=== PATIENT | female | born 1965 | race Caucasian/White ===

== ENCOUNTER 2023-02-14 02:05 | Outpatient (CLI) | payer OTHER, SELFPAY ==
--- NOTE | 2023-02-14 13:00 | DI.CTLCSR_ITS ---
Exam(s) CT CHEST LUNG CANCER SCREEN EXAM: CT CHEST LUNG CANCER SCREEN CLINICAL HISTORY: NICOTINE DEPENDENCE, F17.210 TECHNIQUE: Imaging Protocol: Axial computed tomography images with coronal and sagittal reformatted images were created and reviewed COMPARISON: CT CT CHEST W/ CNTRST from 06/02/2022 FINDINGS: Tracheobronchial tree: Patent where visualized. Pulmonary parenchyma: No consolidation or dominant measurable mass. No architectural distortion. Ther e are calcified granuloma in the lungs. Lung Nodules: None. Mediastinum and Elif: There are stable enlarged mediastinal lymph nodes. The esophagus is unremarkab le. Thyroid gland: Unremarkable. Lymph nodes: No significant axillary adenopathy is present. Pleura: No effusion or pneumothorax. Heart: The heart is not dilated. Moderate coronary artery calcification is present. No pericardial e ffusion. Aorta: Thoracic aorta non-dilated.Mild atherosclerosis. Upper abdomen: Unremarkable. Soft Tissues: Unremarkable. Bones: Within normal limits. IMPRESSION: No suspicious pulmonary nodules. Lung RADS Cat 1 - Negative: No nodules and definitely benign nodules Lung-RADS 1.0 CATEGORIES: Category 0 - Prior chest CT exam(s) being located for comparison. Category 1 - Annual screening in 12 months. No nodules or definitely benign nodules. Category 2 - Annual screening in 12 months. Benign appearance. Nodules with low likelihood of becomin g active cancer. Category 3 - 6-month follow-up. Probably benign. Short-term follow-up suggested. Nodules with low lik elihood of becoming active cancer. Category 4A - 3-month follow-up and CT/PET if >8 mm in size. Suspicious finding. Findings which requi re additional testing. Category 4B - Findings which require additional testing and tissue sampling. Suspicious finding. Category 4X - Category 3 or 4 nodules with additional features or imaging findings that increases the suspicion of malignancy. Modifier S- Potentially clinically significant finding. (Non lung cancer) RADIATION DOSE DELIVERED: 73.3mGy.cm Total DLP 73.3mGy.cmTotal DLP DATA REPOSITORY: All CT scans at this facility are submitted to the National Radiology Data Registry (NRDR) Dose Index Registry (DIR) with the [employer] (ACR). RADIATION OPTIMIZATION: All CT scans at this facility use at least one of these dose optimization te chniques: automated exposure control; mA and/or kV adjustment per patient size (includes targeted exa ms where dose is matched to clinical indication); or iterative reconstruction.
== END 2023-02-14 02:25 ==
PROVIDERS: PCP Nurse Practitioner; Visit Provider Nurse Practitioner Family
DX: Z12.2 Encounter for screening for malignant neoplasm of respiratory organs (principal); F17.210 Nicotine dependence, cigarettes, uncomplicated
CPT/HCPCS: 71271

== ENCOUNTER 2023-09-09 16:23 | Outpatient (REF) | payer OTHER, SELFPAY | END 2023-09-09 16:24 | disposition home or self-care (01) | LOC: LBN 16:23 | PROVIDERS: PCP Nurse Practitioner; Visit Provider Physician Assistant | DX: N39.0 Urinary tract infection, site not specified (principal) | CPT/HCPCS: 87077; 87086; 87186 ==

== ENCOUNTER 2023-09-15 13:47 | Emergency (ER) | payer OTHER, SELFPAY ==
[2023-09-15 13:59] VITALS: BP 140/73; PULSE 105; RESP 18; TEMP 37.2; O2SAT 94
[2023-09-15 14:32] LABS: Clarity Clear (Clear); Specific Gravity 1.027 (1.005-1.025)
[2023-09-15 14:37] LABS: Bacteria Negative HPF (Negative); C & S Indicated? No; Casts Negative LPF (Negative); Crystals Negative HPF (Negative); Epithelial Cells Moderate HPF (Negative); Mucus Trace (Negative); RBC 0-2 HPF (0-2)
--- NOTE | 2023-09-15 15:39 | ED.GENADUL_ITS ---
HPI General Stated Complaint: Urinary JEAN MARIE: 3 Date/Time Provider Initiated Documentation: 09/15/23 15:28. HPI Narrative: 50-year-old female recently diagnosed with UTI at [facility], placed on ciprofloxacin for several days, culture results came back and patient's antibiotics were tailored to fit microbiology and transition to nitrofurantoin, patient has had some mild flank discomfort. No vomiting fevers or chills. No chest pain or shortness of breath. Initially patient was passing clots in her urine this has stopped. Related Data Home Medications Medication Instructions Recorded Confirmed phenazopyridine 200 mg tablet 200 mg PO TID PRN pain 6 doses #6 09/09/23 09/15/23 (Pyridium) tabs atorvastatin 40 mg tablet 40 mg PO ONCE 09/15/23 09/15/23 hydroxyzine HCl 25 mg tablet 25 mg PO PRN 09/15/23 09/15/23 metoprolol succinate 50 mg 50 mg PO ONCE 09/15/23 09/15/23 tablet,extended release 24 hr nitrofurantoin 09/15/23 monohydrate/macrocrystals 100 mg capsule omeprazole 20 mg capsule,delayed 20 mg PO ONCE 09/15/23 09/15/23 release potassium chloride 20 mEq 20 meq PO ONCE 09/15/23 09/15/23 tablet,extended release prazosin 1 mg capsule 1 mg PO ONCE 09/15/23 09/15/23 risperidone 2 mg tablet 2 mg PO BID 09/15/23 09/15/23 semaglutide 7 mg tablet (Rybelsus) 7 mg PO ONCE 09/15/23 09/15/23 vortioxetine 10 mg tablet 15 mg PO ONCE 09/15/23 09/15/23 (Trintellix) Previous Rx's Medication Instructions Recorded phenazopyridine 200 mg tablet 200 mg PO TID PRN pain 6 doses #6 09/09/23 (Pyridium) tabs Allergies Allergy/AdvReac Type Severity Reaction Status Date / Time gabapentin Allergy Unknown Verified 09/15/23 14:03 passion fruit Allergy Unknown Verified 09/15/23 14:03 pineapple Allergy Unknown Verified 09/15/23 14:03 latex Allergy Intermediate Uncoded 09/15/23 14:03 banana Allergy Unknown Uncoded 09/15/23 14:03 Review of Systems Narrative: Review of Systems Constitutional: negative Eyes: negative ENT: negative Cardiovascular: negative Respiratory: negative Gastrointestinal: negative : Flank pain Musculoskeletal: negative Skin: negative Neurologic: negative Psych: negative PFSH All Active Problems (Updated 09/15/23 @ 16:51 by Kenneth Boogie MD) Flank pain (Acute) Social History Smoking/Tobacco Use Status: Current every day Smoking risk assessment performed?: Yes Alcohol Intake: current Alcohol Intake frequency: holidays/special occasions only Substance use type: marijuana Do you feel safe at home: Yes Do you feel safe in your relationship?: Yes Exam Narrative Exam Narrative: Physical Examination General: alert, awake, cooperative, resting comfortably, no acute distress HEENT: normocephalic, atraumatic; PERRL, EOM intact, conjunctiva normal; no nasal discharge; moist mucous membranes, oral and pharyngeal mucosa normal, tolerating secretions Neck: supple, trachea midline; full ROM Chest: normal to inspection Respiratory: normal respiratory effort, speaking in full sentences, clear to auscultation, no wheezing, rales or rhonchi Cardiac: regular rate, regular rhythm, S1S2 intact, no murmurs rubs or gallops GI: abdomen soft, non-tender, non-distended; no palpable mass or hepatosplenomegaly Back: No CVA tenderness Skin: no lesions, rashes or trauma appreciated Neuro: AAOx3, normal speech, moving all extremities Course Vital Signs Vital signs: Vital Signs Temperature 37.2 C 09/15/23 13:59 Pulse 105 H 09/15/23 13:59 Respiratory Rate 18 09/15/23 13:59 Blood Pressure 140/73 09/15/23 13:59 Pulse Oximetry 94 09/15/23 13:59 Temperature 37.2 C 09/15/23 13:59 Temperature Source Skin 09/15/23 13:59 Pulse 105 H 09/15/23 13:59 Respiratory Rate 18 09/15/23 13:59 Respiratory Effort Normal 09/15/23 14:02 Blood Pressure 140/73 09/15/23 13:59 Blood Pressure Position Sitting 09/15/23 13:59 Pulse Oximetry 94 09/15/23 13:59 Oxygen Delivery Method Room Air 09/15/23 13:59 Oxygen Flow Rate 0 09/15/23 13:59 Lab/Test Results Lab/Test Results: Laboratory Tests Range/Units 09/15/23 14:20 Urine Color (Yellow) [place] Urine Clarity (Clear) Clear Urine pH (5-8) Ur Specific [place] (1.005-1.025) 1.027 H Urine Protein (Negative) mg/dL Urine Ketones (Negative) mg/dL Urine Blood (Negative) Urine Nitrite (Negative) Urine Bilirubin (Negative) Urine Urobilinogen (Up to 0.2) mg/dL Ur Leukocyte Esterase (Negative) Urine RBC (0-2) HPF 0-2 Urine WBC (0-5) HPF 3-5 Ur Epithelial Cells (Negative) HPF Moderate Urine Crystals (Negative) HPF Negative Urine Bacteria (Negative) HPF Negative Urine Casts (Negative) LPF Negative Urine Mucus (Negative) Trace Ur Culture Indicated? No Urine Glucose (Negative) mg/dL Medical Decision Making 58-year-old female recent diagnosis of UTI started on ciprofloxacin, antibiotics changed to nitrofurantoin following culture results, presents with intermittent flank discomfort, mild nausea without vomiting. Afebrile nontoxic no CVA tenderness on examination. Patient appears to be resting comfortably in no acute distress. Urinalysis here today is clean. Likely improving UTI given appropriate antibiotic to match microbiology. Must also consider mild pyelonephritis. Must also consider recent nephrolithiasis with ureteral spasm. Given patient's well appearance and likely improving urinary tract infection we had shared decision making at the bedside regarding possible discharge home without further evaluation, however patient is here and would like testing performed. Will obtain basic labs CT Noncon will provide light fluid analgesia anti-inflammatory. Likely home with close follow-up pending results 16: 50 patient resting comfortably no acute distress. Labs and imaging unremarkable. No clinical radiographic or laboratory evidence to support the diagnosis of pyelonephritis. Patient will continue with her oral antibiotics. No evidence of nephrolithiasis. Home care instructions and return precautions given Quality:SDOH Health Related Social Needs: No Data to Display Discharge Plan Disposition Patient Disposition: Home Condition: Improving Discharge Details Chief Complaint: Urinary Clinical Impression: Flank pain Primary Care Provider: Audra Santos ED Provider: Kenneth Boogie Home Meds and New Rx's Prescriptions: No Action phenazopyridine [Pyridium] 200 mg tablet 200 mg PO TID PRN (Reason: pain) Qty: 6 0RF atorvastatin 40 mg tablet 40 mg PO ONCE Patient Comments: TAKE 1 TABLET BY MOUTH ONCE DAILY nitrofurantoin monohyd/m-cryst 100 mg capsule Patient Comments: TAKE ONE CAPSULE BY MOUTH TWICE A DAY prazosin 1 mg capsule 1 mg PO ONCE Patient Comments: TAKE ONE CAPSULE BY MOUTH AT BEDTIME metoprolol succinate 50 mg tablet extended release 24 hr 50 mg PO ONCE Patient Comments: TAKE ONE TABLET BY MOUTH EVERY DAY risperidone 2 mg tablet 2 mg PO BID Patient Comments: TAKE ONE TABLET BY MOUTH TWICE A DAY omeprazole 20 mg capsule,delayed release(DR/EC) 20 mg PO ONCE Patient Comments: TAKE ONE CAPSULE BY MOUTH EVERY DAY 30 MINUTES BEFORE MORNING MEAL hydroxyzine HCl 25 mg tablet 25 mg PO PRN Patient Comments: TAKE 1 TABLET BY MOUTH EVERY 6 HOURS potassium chloride 20 mEq tablet extended release 20 meq PO ONCE Patient Comments: TAKE ONE TABLET BY MOUTH EVERY DAY WITH FOOD Rybelsus 7 mg tablet 7 mg PO ONCE Patient Comments: TAKE ONE TABLET BY MOUTH EVERY DAY , TAKE AT LEAST 30 MINUTES BEFORE FIRST FOOD, BEVERAGE OR OTHER MEDICATIONS OF THE DAY Trintellix 10 mg tablet 15 mg PO ONCE Patient Comments: TAKE 1 TABLET BY MOUTH ONCE DAILY WITH FOOD Discharge Instructions Instructions: Flank Pain (ED) Additional Instructions: Please continue with your antibiotics as prescribed. Follow-up with your primary care physician.
[2023-09-15 15:47] LABS: Abs Immature Grans 0.05 10^3/uL (0.0-0.06); Basophils % 0.8; Eosinophils % 1.7; HCT 49.2 % (36.0-46.0); HGB 16.6 g/dL (11.2-15.7); Immature Grans % 0.4; Lymphocytes % 29.2; MCH 29.6 pg (27.0-33.0); MCHC 33.7 % (32.0-36.0); MCV 88 fL (80-95); MPV 9.5 fL (8.0-11.0); Monocytes % 5.3; Neutrophils % 62.6; Platelet Count 226 10^3/uL (130-400); RBC 5.61 10^6/uL (3.93-5.22); RDW 12.3 % (11.7-14.6); RDW-SD 39.8 fL; WBC 11.98 10^3/uL (4.4-10.8)
[2023-09-15 15:48] LABS: Absolute Monocyte Count 0.63 10^3/uL (0.1-0.8)
[2023-09-15] MEDS: Normal Saline 1,000 ML 1000 ML IV (15:54)
[2023-09-15] MEDS: ACETAMINOPHEN 1,000 MG/100 ML BTL 400 MG IVPB (15:54)
[2023-09-15] MEDS: Tamsulosin 0.4 MG CAPCR PO (15:54)
[2023-09-15 16:02] LABS: ALT 28 U/L (14-59); AST 15 U/L (15-37); Albumin 3.5 g/dL (3.4-5.0); Alkaline Phosphatase 157 U/L (46-116); Anion Gap 8.9 mmol/L (3-11); BUN 16 mg/dL (7-18); Bilirubin, Total 0.5 mg/dL (0.2-1.0); CO2 28.1 mmol/L (21.0-32.0); CREATININE 0.9 mg/dL (0.55-1.02); Calcium 9.4 mg/dL (8.5-10.1); Chloride 98 mmol/L (98-107); Potassium 4.2 mmol/L (3.5-5.1); Sodium 135 mmol/L (136-145); Total Protein 7.7 g/dL (6.4-8.2)
[2023-09-15 16:03] LABS: Glucose 316 mg/dL (74-106)
--- NOTE | 2023-09-15 16:10 | DI.CT_ITS ---
Exam(s) CT ABDOMEN PELVIS WO EXAM: CT ABDOMEN PELVIS WO CLINICAL HISTORY: flank pain, hematuria resolved, possible uti. TECHNIQUE: Imaging Protocol: Axial computed tomography images with coronal and sagittal reformatted images were created and reviewed. Oral: no CT CT CHEST W/ CNTRST from 06/02/2022 FINDINGS: Lung Bases: No acute findings. Liver: Enlarged. Moderate to severe hepatic steatosis.. No measurable mass. Gallbladder and biliary tract: No radiodense calculus or dilation. Pancreas: Normal density, no abnormal calcifications or inflammatory process. Spleen: Normal. Kidneys: Normal size, contour and axis. No radiodense stones or obstructive uropathy. No suspicious m asses seen. Adrenal glands: No masses seen. Lymph nodes: Within normal limits. Vasculature: Abdominal aorta non-dilated. Soft tissues: Unremarkable. Bladder: No wall thickening. No mass or calculi. Bowel: Increased quantity of stool. No obstruction or bowel wall thickening. Appendix normal. Peritoneal cavity: No ascites, collection or mesenteric inflammatory response. Reproductive organs: Status post hysterectomy. Bones: Unremarkable for age. IMPRESSION: No acute abnormality in the abdomen or pelvis. RADIATION DOSE DELIVERED: !Error Total DLP DATA REPOSITORY: All CT scans at this facility are submitted to the National Radiology Data Registry (NRDR) Dose Index Registry (DIR) with the [employer] (ACR). RADIATION OPTIMIZATION: All CT scans at this facility use at least one of these dose optimization te chniques: automated exposure control; mA and/or kV adjustment per patient size (includes targeted exa ms where dose is matched to clinical indication); or iterative reconstruction.
== END 2023-09-15 17:03 | disposition home or self-care (01) ==
PROVIDERS: Emergency Provider Emergency Medicine; PCP Nurse Practitioner
DX: R11.0 Nausea (principal); R10.9 Unspecified abdominal pain; F17.200 Nicotine dependence, unspecified, uncomplicated; Z90.710 Acquired absence of both cervix and uterus
CPT/HCPCS: 36415; 80053; 96361; 96374; 99284; 74176; 81003; 81015; 85025; J0131

== ENCOUNTER → 2023-12-14 10:39 | Outpatient (CLI) | payer OTHER, SELFPAY ==
--- NOTE | 2023-12-14 09:30 | DI.RAD_ITS ---
Exam(s) XR SHOULDER RT COMPLETE 2+V EXAM: XR SHOULDER RT COMPLETE 2+V CLINICAL HISTORY: right shoulder pain, hurt lifting heavy object,m25.511. TECHNIQUE: 2D digital imaging was performed of the right shoulder. Five images were obtained. AP, Grashey, Y-view and axillary views were obtained. COMPARISON: No exams were available for comparison FINDINGS: BONES: No acute fracture is present. No bony destructive lesion is seen. JOINTS: No dislocation present. The glenohumeral joint is well maintained. The acromioclavicular leeann nt is well maintained. There is a calcification superior to the glenoid. Loose body versus calcific tendinitis. SOFT TISSUE: On the axillary view, there is a calcification adjacent to the greater tuberosity likely reflecting calcific tendinitis. IMPRESSION: No acute fracture or dislocation. If there is concern for internal derangement, an MRI should be con sidered. DATA REPOSITORY: RADIATION DOSE DELIVERED:
== END ==
PROVIDERS: PCP Nurse Practitioner Family; Visit Provider Nurse Practitioner Family
DX: M25.511 Pain in right shoulder (principal); M75.31 Calcific tendinitis of right shoulder
CPT/HCPCS: 73030

== ENCOUNTER → 2023-12-22 12:46 | Outpatient (BNVA) | payer OTHER, SELFPAY | PROVIDERS: PCP Nurse Practitioner Family; Referring Provider Nurse Practitioner Family; Visit Provider Student in an Organized Health Care Education/Training Program | DX: J44.9 Chronic obstructive pulmonary disease, unspecified (principal); F17.210 Nicotine dependence, cigarettes, uncomplicated | CPT/HCPCS: 99215 ==

== ENCOUNTER 2023-12-27 04:13 | Outpatient (CLI) | payer OTHER, SELFPAY ==
[2023-12-27] MEDS: Levalbuterol HFA 15 GM INH 4 PUFF IH (13:28)
[2023-12-27] MEDS: Inhaler, Assist Device 1 EACH MC (13:28)
--- NOTE | 2023-12-30 11:19 | W.PFT ---
Date of service: 12/27/23 Time of Service: 12:37 Pulmonary Function Test Result Indications: COPD Interpretation Spirometry: There is no airflow limitation. No bronchodilator response. Lung Volumes: Normal lung volumes Diffusion Capacity: Normal diffusion Airway Pressure: Normal airways resistance Impression Normal pulmonary function testing Clinical Correlation therefore is recommended.
== END 2023-12-27 04:14 | disposition home or self-care (01) ==
LOC: RT 04:15
PROVIDERS: PCP Nurse Practitioner Family; Visit Provider Student in an Organized Health Care Education/Training Program
DX: J44.9 Chronic obstructive pulmonary disease, unspecified (principal)
CPT/HCPCS: 94060; 94726; 94729

== ENCOUNTER 2024-01-12 08:26 | Outpatient (CLI) | payer OTHER, SELFPAY ==
--- NOTE | 2024-01-12 08:15 | RT.EKG_ITS ---
APPROVED REPORT Exam: Resting ECG Reason for Exam: HTN Patient Location: O HR:87 bpm ECG Measurements Heart Rate 87 AXIS NM 126 P 38 QRSd 96 QRS 41 QT 388 T 26 QTc 467 Conclusion Sinus rhythm...normal P axis, V-rate 50- 99 Normal Electrocardiogram
== END 2024-01-12 08:27 | disposition home or self-care (01) ==
LOC: DI.CARD 08:27
PROVIDERS: PCP Nurse Practitioner Family; Visit Provider Internal Medicine Cardiovascular Disease
DX: I10 Essential (primary) hypertension (principal); I50.9 Heart failure, unspecified
CPT/HCPCS: 93010

== ENCOUNTER → 2024-01-12 11:11 | Outpatient (BNVA) | payer OTHER, SELFPAY | PROVIDERS: PCP Nurse Practitioner Family; Referring Provider Nurse Practitioner Family; Visit Provider Internal Medicine Cardiovascular Disease | DX: R09.89 Other specified symptoms and signs involving the circulatory and respiratory systems (principal); I50.9 Heart failure, unspecified; I10 Essential (primary) hypertension | CPT/HCPCS: 93005; 99214 ==

== ENCOUNTER → 2024-02-08 04:11 | Outpatient (CLI) | payer OTHER, SELFPAY ==
--- NOTE | 2024-02-08 11:30 | DI.MRI_ITS ---
Exam(s) MR UPPER JOINT RT WO EXAM: MR UPPER JOINT RT WO CLINICAL HISTORY: concern for internal derangement, rt shoulder pain, M25.511. TECHNIQUE: Multiplanar multisequence MRI was performed. COMPARISON: Plain films 14 December 2023 FINDINGS: The exam is mildly limited by body habitus. BONES: There is no fracture or contusion pattern. Mild degenerative signal changes in the greater tub erosity. JOINTS:The acromioclavicular joint shows mild inferior spurring. The glenohumeral joint shows a mini mal amount of fluid. TENDONS: Supraspinatus: Unremarkable. Infraspinatus: Unremarkable. Subscapularis: Unremarkable. Teres [place]: Unremarkable. Biceps and [place]: Intact. Small amount of fluid in biceps tendon sheath. MUSCLES: Unremarkable. GLENOID LABRUM: Unremarkable on this noncontrast examination. SOFT TISSUES: Unremarkable. OTHER: Subacromial and subdeltoid bursae shows no fluid. Small amount of fluid in the subcoracoid b ursa.. IMPRESSION: No evidence of internal derangement. DATA REPOSITORY:
== END ==
PROVIDERS: PCP Nurse Practitioner Family; Visit Provider Nurse Practitioner Family
DX: M25.511 Pain in right shoulder (principal)
CPT/HCPCS: 73221

== ENCOUNTER → 2024-02-20 05:24 | Outpatient (CLI) | payer OTHER, SELFPAY ==
--- NOTE | 2024-02-20 08:39 | DI.CTLCSR_ITS ---
Exam(s) CT CHEST LUNG CANCER SCREEN EXAM: CT CHEST LUNG CANCER SCREEN CLINICAL HISTORY: Screening for lung cancer,current smoker, f17.210. TECHNIQUE: Imaging Protocol: Low Dose Technique CONTRAST MATERIAL: None COMPARISON: CT CT CHEST LUNG CANCER SCREEN from 02/14/2023 FINDINGS: CHEST: LUNGS: There are no new ominous pulmonary nodules. There is a small 2 millimeter calcified granuloma in the left lower lobe again noted, unchanged. There are no confluent infiltrates. No pleural effu sions. MEDIASTINUM: There is no obvious hilar nor mediastinal adenopathy. CARDIAC: Heart size is normal. There is no pericardial effusion.Caliber of the thoracic aorta is wit hin normal limits. OTHER: OSSEOUS: No significant osseous lesions.. IMPRESSION: 1. No significant pulmonary nodules. 2. No infiltrates nor pleural effusions nor intrathoracic adenopathy. 3. Lung RADS Cat 1 - Negative: No nodules and definitely benign nodules Lung-RADS 1.0 CATEGORIES: Category 0 - Prior chest CT exam(s) being located for comparison. Category 1 - Annual screening in 12 months. No nodules or definitely benign nodules. Category 2 - Annual screening in 12 months. Benign appearance. Nodules with low likelihood of becomin g active cancer. Category 3 - 6-month follow-up. Probably benign. Short-term follow-up suggested. Nodules with low lik elihood of becoming active cancer. Category 4A - 3-month follow-up and CT/PET if >8 mm in size. Suspicious finding. Findings which requi re additional testing. Category 4B - Findings which require additional testing and tissue sampling. Category 4X - Category 3 or 4 nodules with additional features or imaging findings that increases the suspicion of malignancy. Modifier S- Potentially clinically significant findings (non lung cancer) RADIATION DOSE DELIVERED: 86.73mGy.cm Total DLP DATA REPOSITORY: All CT scans at this facility are submitted to the National Radiology Data Registry (NRDR) Dose Index Registry (DIR) with the [employer] (ACR). RADIATION OPTIMIZATION: All CT scans at this facility use at least one of these dose optimization te chniques: automated exposure control; mA and/or kV adjustment per patient size (includes targeted exa ms where dose is matched to clinical indication); or iterative reconstruction.
== END ==
PROVIDERS: PCP Nurse Practitioner Family; Visit Provider Student in an Organized Health Care Education/Training Program
DX: F17.210 Nicotine dependence, cigarettes, uncomplicated (principal); Z12.2 Encounter for screening for malignant neoplasm of respiratory organs
CPT/HCPCS: 71271